=== PATIENT | male | born 1955 | race Asian ===

== ENCOUNTER 2020-06-25 18:24 | Emergency (ER) | payer OTHER ==
[~2020-06-25] VITALS: Ht 190.5 cm; Wt 89.8 kg
[2020-06-25 18:24] VITALS: BP 133/81; TEMP 97.9
[2020-06-25 19:21] LABS: PLATELET COUNT 144 K/uL (142-355)
[2020-06-25 19:35] LABS: POTASSIUM 4.5 mmol/L (3.6-5.2)
[2020-06-25] MEDS ORDERED: TYLENOL325 MG PO (22:38)
[2020-06-25] MEDS ORDERED: AMLODIPINE BESYLATE PO (22:39)
[2020-06-25] MEDS ORDERED: BACLOFEN5 MG PO (22:40)
[2020-06-25] MEDS ORDERED: CRANBERRY450 MG PO (22:42)
[2020-06-25] MEDS ORDERED: DIPH25CA90 PO (22:42)
[2020-06-25] MEDS ORDERED: GRALISE600 MG PO (22:44)
[2020-06-25] MEDS ORDERED: GLIP10TA55 PO (22:46)
[2020-06-25] MEDS ORDERED: CLARITIN10 M1 PO (22:47)
[2020-06-25] MEDS ORDERED: INSU300I SC (22:47)
[2020-06-25] MEDS ORDERED: NOVOLOG FL100 UNIT/M SC (22:56)
[2020-06-25] MEDS ORDERED: NOVOLOG100 UNIT/M SC (22:58)
[2020-06-25] MEDS ORDERED: TAMS0.4C PO (22:59)
[2020-06-25] MEDS ORDERED: TRAMADOL HYDROC50 MG PO ×2 (23:00→23:02)
== END 2020-06-25 20:50 | disposition still patient (30) ==
LOC: ED 18:24
PROVIDERS: Hospitalist
DX: R46.89 Other symptoms and signs involving appearance and behavior (principal); F41.8 Other specified anxiety disorders; I10 Essential (primary) hypertension; Z11.52 Encounter for screening for COVID-19; Z04.6 Encounter for general psychiatric examination, requested by authority
CPT/HCPCS: 36415; 80053; 81000; 85027; 87635; 93005; 96372; 99283; J1815; U0003

== ENCOUNTER 2022-11-18 18:34 | Emergency (ER) | payer OTHER ==
[~2022-11-18] VITALS: Ht 190.5 cm; Wt 127.0 kg
[2022-11-18 18:34] VITALS: BP 112/77; TEMP 98
[~2022-11-18 18:34] MED LIST: AMLODIPINE BESYLATE PO; BACLOFEN5 MG PO; CITA20TA2 PO; CLARITIN10 M1 PO; CRANBERRY450 MG PO; DIPH25CA90 PO; GLIP10TA55 PO; GRALISE600 MG PO; INSU100P SC; INSU300I SC; NOVOLOG FL100 UNIT/M SC; NOVOLOG100 UNIT/M SC; TAMS0.4C PO; TRAMADOL HYDROC50 MG PO; TYLENOL325 MG PO
[2022-11-18 19:41] LABS: PLATELET COUNT 180 K/uL (142-355)
[2022-11-18 19:43] LABS: POTASSIUM 3.7 mmol/L (3.6-5.2)
[2022-11-19] MEDS ORDERED: VITAMIN B-121000 MCG PO (10:26)
[2022-11-19] MEDS ORDERED: DULOXETINE HCL30 MG PO (10:27)
[2022-11-19] MEDS ORDERED: ALLERGY NA50 MCG/ACT NAS (10:29)
[2022-11-19] MEDS ORDERED: GLIP10TA55 PO (10:31)
[2022-11-19] MEDS ORDERED: FOLI1TAB26 PO (10:31)
[2022-11-19] MEDS ORDERED: POLYETHYLE17 GM/SCO1 PO (10:34)
[2022-11-19] MEDS ORDERED: JARDIANCE25 MG PO (10:34)
[2022-11-19] MEDS ORDERED: XALATAN0.005 % IO (10:36)
[2022-11-19] MEDS ORDERED: LEVEMIR FL100 UNIT/M SC ×2 (10:38→10:39)
[2022-11-19] MEDS ORDERED: COZAAR25 MG PO (10:42)
[2022-11-19] MEDS ORDERED: PANTOPRAZOLE 40MG TA PO (10:42)
[2022-11-19] MEDS ORDERED: PRIM50TA4 PO (10:43)
[2022-11-19] MEDS ORDERED: THIA100T8 PO (10:45)
[2022-11-19] MEDS ORDERED: FAMOTIDINE MAXI20 MG PO (10:47)
[2022-11-19] MEDS ORDERED: POTASSIUM CHLO10 MEQ PO (10:49)
[2022-11-19] MEDS ORDERED: BACLOFEN20 MG PO (10:51)
[2022-11-19] MEDS ORDERED: LYRICA150 MG PO (10:53)
[2022-11-19] MEDS ORDERED: INSU100P SC (10:55)
[2022-11-25] MEDS ORDERED: BACL10TA4 PO (10:22)
[2022-11-25] MEDS ORDERED: NORVASC 5MG TAB PO (10:22)
[2022-11-25] MEDS ORDERED: ACET-206 PO (10:22)
[2022-11-25] MEDS ORDERED: Flonase Nasal Inhale NAS (10:23)
[2022-11-25] MEDS ORDERED: FAMOTIDINE20 MG PO (10:23)
[2022-11-25] MEDS ORDERED: JARDIANCE10 MG PO (10:23)
[2022-11-25] MEDS ORDERED: GLIPIZIDE 10 MG PO (10:23)
[2022-11-25] MEDS ORDERED: FOLI1TAB26 PO (10:23)
[2022-11-25] MEDS ORDERED: INSU100P SC ×2 (10:24)
[2022-11-25] MEDS ORDERED: LATA0.00 OPTH (10:25)
[2022-11-25] MEDS ORDERED: INSU-1996 SC ×2 (10:25)
[2022-11-25] MEDS ORDERED: LORA10TA3 PO (10:25)
[2022-11-25] MEDS ORDERED: MIRALAX 17GM PAK PO (10:26)
[2022-11-25] MEDS ORDERED: LOSA50TA PO (10:26)
[2022-11-25] MEDS ORDERED: PANTOPRAZOLE 40MG TA PO (10:26)
[2022-11-25] MEDS ORDERED: POTA10CA3 PO (10:26)
[2022-11-25] MEDS ORDERED: PRIM50TA4 PO (10:27)
[2022-11-25] MEDS ORDERED: LYRICA75 MG PO (10:27)
[2022-11-25] MEDS ORDERED: THIA100T8 PO (10:27)
[2022-11-25] MEDS ORDERED: TAMS0.4C PO (10:27)
== END 2022-11-18 20:50 | disposition other institution (70) ==
LOC: ED 18:34
PROVIDERS: Family Medicine
DX: F29 Unspecified psychosis not due to a substance or known physiological condition (principal); Z02.79 Encounter for issue of other medical certificate
CPT/HCPCS: 36415; 80053; 81002; 85027; 87635; 93005; 99283; U0003